=== PATIENT | male | born 1935 | race Caucasian/White ===

== ENCOUNTER 2017-09-19 07:48 | Day surgery (SDC) | payer MEDICARE, OTHER ==
[~2017-09-19 07:48] MED LIST: ACETAMINOPHEN 325 MG TAB PO; CYCLOPENTOLATE 2% OPHTH SOLN 2ML BTL OS; LIDOCAINE 3.5 % 1ML OPHTH TOPICAL GEL OU; MIDAZOLAM INJ 2 MG/2 ML VIAL (J2250) As Ordered; OFLOXACIN 0.3 % (OCUFLOX) OPTH SOL 5ML OS; PHENYLEPHRINE 2.5% OPHTH SOL 2ML OS; PHENYLEPHRINE HCL 10 % OPHTH. SOL 5ML OS; PROPARACAINE 0.5% OPHTH SOL 15ML OS; TROPICAMIDE 1% OPHTH SOLN 2ML OS; fentaNYL 100 MCG/2 ML INJECTION (J3010) As Ordered
[2017-09-19] MEDS ORDERED: LIDOCAINE 1% SDV 5 ML VIAL SQ (08:00)
[2017-09-19] MEDS: HEALON DUET (HEALON 10MG/ML 0.55ML & HEALON ENDOCOAT 30MG/ML 0.85ML) As Ordered (09:39)
[2017-09-19] MEDS: CEFUROXIME 1MG/0.1ML INTRACAMERAL INJ As Ordered (09:39)
[2017-09-19] MEDS: LIDOCAINE 1% SDV 5 ML VIAL As Ordered (09:39)
[2017-09-19] MEDS: BALANCED SALT IRRIGATION SOLUTION 500ML BAG (FOR OR EYE MACHINE) As Ordered (09:39)
[2017-09-19] MEDS: POVIDONE-IODINE 5% OPHTH PREP SOL 30ML As Ordered (09:39)
[2017-09-19] MEDS ORDERED: TRIMETHOBENZAMIDE 300 MG CAP PO (10:15)
[2017-09-19] MEDS: AcetaZOLAMIDE 500 MG ER CAP PO (10:17)
[2017-09-19] MEDS: KETOROLAC 0.5% OPHTH SOLN OS (10:17)
== END 2017-09-19 10:48 | disposition home or self-care (01) ==
LOC: M SDC 07:48
DX: H25.12 Age-related nuclear cataract, left eye (principal); I10 Essential (primary) hypertension; E78.5 Hyperlipidemia, unspecified; K21.9 Gastro-esophageal reflux disease without esophagitis; J44.9 Chronic obstructive pulmonary disease, unspecified; Z79.82 Long term (current) use of aspirin; Z79.899 Other long term (current) drug therapy
CPT/HCPCS: 66984